=== PATIENT | female | born 1995 | race Caucasian/White ===

== ENCOUNTER 2019-11-10 20:08 | Emergency (ER) | payer OTHER ==
[2019-11-10 20:19] VITALS: BP 110/64
--- NOTE | 2019-11-10 20:25 | UC ---
Hand/Wrist HPI - History Of Current Complaint Chief Complaint: UCUpperExtremity Stated Complaint: HAND INJURY Time Seen by Provider: 11/10/19 20:24 Hx Last Menstrual Period: 10/12/19 Pain Intensity: 4 - Allergies/Home Medications Allergies/Adverse Reactions: Allergies Allergy/AdvReac Type Severity Reaction Status Date / Time Penicillins Allergy Severe throat Verified 11/10/19 20:22 swells amoxicillin Allergy Hives Verified 11/10/19 20:22 Home Medications: Home Medications NK [No Home Medications Reported] 11/10/19 [History Confirmed 11/10/19] PMH/Surg Hx/FS Hx/Imm Hx - Surgical History Surgical History: None - Family History Known Family History: Positive: None - Social History Alcohol Use: Weekly Substance Use Type: None Smoking Status (MU): Never Smoked Tobacco Physical Exam Vital Signs: Initial Vital Signs Temp 97.8 F 11/10/19 20:14 Pulse 77 11/10/19 20:14 Resp 16 11/10/19 20:14 BP 110/64 11/10/19 20:14 Pulse Ox 100 11/10/19 20:14 Diagnostics - Radiology No standard instances Radiology Interpretation Completed By: Radiologist - no fx Discharge ED - Sign-Out/Discharge All imaging exams completed and their final reports reviewed: No - Discharge Plan Condition: Stable Disposition: HOME Patient Education Materials: Contusion in Adults (ED) Referrals: Danny Bagley MD [Medical Doctor] - No Primary Care Phys,NOPCP [Primary Care Provider] - Additional Instructions: -Wear splint for comfort and support as much as -Apply ice (20 min at a time) every 2-3 hours for the next 2 days -Elevate your arm to help with swelling and pain -Okay to alternate ibuprofen (Advil, Motrin) 600mg and acetaminophen (Tylenol) 1000mg every 3 hours for pain. Take with food. Do NOT take for more than 4-5 days - You have been given the contact information for the contact center specialist - if you have ongoing pain, swelling or other concerns, contact the contact center specialist for a follow-up appointment. - Billing Disposition and Condition Condition: STABLE Disposition: Home
[2019-11-10] MEDS ORDERED: Ibuprofen TAB* 600 MG PO ONE (20:41)
--- NOTE | 2019-11-11 07:54 | UC ---
- Progress Note Progress Note: wet read correct IMPRESSION: NO DEFINITE FRACTURE. CHRONIC APPEARING PUNCTATE OSSIFIC STRUCTURE NEAR THE SECOND MCP (CORRELATE WITH POINT TENDERNESS). R2 Course/Dx - Diagnoses Provider Diagnoses: Finger contusion Discharge ED - Sign-Out/Discharge Documenting (check all that apply): Post-Discharge Follow Up All imaging exams completed and their final reports reviewed: Yes - Discharge Plan Condition: Stable Disposition: HOME Patient Education Materials: Contusion in Adults (ED) Referrals: Danny Bagley MD [Medical Doctor] - No Primary Care Phys,NOPCP [Primary Care Provider] - Additional Instructions: -Wear splint for comfort and support as much as -Apply ice (20 min at a time) every 2-3 hours for the next 2 days -Elevate your arm to help with swelling and pain -Okay to alternate ibuprofen (Advil, Motrin) 600mg and acetaminophen (Tylenol) 1000mg every 3 hours for pain. Take with food. Do NOT take for more than 4-5 days - You have been given the contact information for the online banking specialist - if you have ongoing pain, swelling or other concerns, contact the online banking specialist for a follow-up appointment. - Billing Disposition and Condition Condition: STABLE Disposition: Home
== END 2019-11-10 21:12 | disposition home or self-care (01) ==
LOC: UCEAST 20:08
DX: S60.00XA Contusion of unspecified finger without damage to nail, initial encounter (principal); Z88.0 Allergy status to penicillin; X58.XXXA Exposure to other specified factors, initial encounter; Y92.9 Unspecified place or not applicable
CPT/HCPCS: 99213; A9270-GY; G0463